=== PATIENT | female | born 1990 | race Caucasian/White ===

== ENCOUNTER 2018-09-11 17:33 | Emergency (ER) | payer OTHER ==
[~2018-09-11] VITALS: Ht 165.1 cm; Wt 59.9 kg
[~2018-09-11 17:33] MED LIST: TORADOL10 MG
== END 2018-09-11 19:26 | disposition home or self-care (01) ==
LOC: ER 17:33
DX: S93.692A Other sprain of left foot, initial encounter (principal); X50.3XXA Overexertion from repetitive movements, initial encounter; Y93.89 Activity, other specified; Y92.89 Other specified places as the place of occurrence of the external cause; Y99.8 Other external cause status

== ENCOUNTER 2022-04-28 10:42 | Emergency (ER) | payer OTHER ==
[~2022-04-28] VITALS: Ht 165.1 cm; Wt 70.3 kg
[2022-04-28] MEDS ORDERED: KETO10TA2 PO (16:24)
== END 2022-04-28 17:40 | disposition home or self-care (01) ==
LOC: ER 10:42
DX: S89.92XA Unspecified injury of left lower leg, initial encounter (principal); W19.XXXA Unspecified fall, initial encounter; Y93.9 Activity, unspecified; Y92.9 Unspecified place or not applicable